=== PATIENT | female | born 1965 | race Caucasian/White ===

== ENCOUNTER 2019-09-08 16:11 | Outpatient (CLI) | payer OTHER, SELFPAY ==
--- NOTE | ~2019-09-08 | US_ITS ---
EXAMINATION: US transvaginal DATE: 09/08/2019 16:41 INDICATION: Cystocele TECHNIQUE: Multiple endovaginal sonographic images of the pelvis were obtained. COMPARISON: None. FINDINGS: The uterus is surgically absent. The ovaries are not visualized. There is a 3.3 x 2.7 x 2. 7 cm cystic area of the right adnexa. There is no free fluid in the pelvis. No definite sonographic e vidence of cystocele is seen. IMPRESSION: 1. No definite sonographic evidence of cystocele. 2. Cystic area of the right adnexa which may be benign. In a postmenopausal female, follow-up ultraso und in 12 months is recommended. Reviewed, dictated and finalized at location A. [employer] IMPRESSION: 1. No definite sonographic evidence of cystocele. 2. Cystic area of the right adnexa which may be benign. In a postmenopausal fem [place], follow-up ultrasound in 12 months is recommended.
== END 2019-09-08 16:12 ==
PROVIDERS: Visit Provider Nurse Practitioner
DX: N81.10 Cystocele, unspecified (principal); R93.5 Abnormal findings on diagnostic imaging of other abdominal regions, including retroperitoneum
CPT/HCPCS: 76830

== ENCOUNTER 2025-03-19 11:15 | Outpatient (CLI) | payer BC, SELFPAY ==
--- NOTE | ~2025-03-19 | XR_ITS ---
EXAM/PROCEDURE: XR chest 2V - 03/19/2025 11:24 CDT HISTORY: 60 years old Female with Subacute cough TECHNIQUE: Two view(s) of the chest. COMPARISON: None available. FINDINGS: LUNGS/ PLEURA: No focal consolidation. Mild perihilar bronchial wall thickening. HEART/ MEDIASTINUM: Heart appears normal in size. Tortuous aorta. BONES: No acute osseous abnormality. OTHER: Visualized upper abdomen is unremarkable. IMPRESSION: No focal consolidation. Mild perihilar bronchial wall thickening, findings suggestive of respiratory bronchiolitis. Reviewed, dictated and finalized at location N. IMPRESSION: No focal consolidation. Mild perihilar bronchial wall thickening, findings sugg estive of respiratory bronchiolitis.
== END 2025-03-19 11:16 | disposition home or self-care (01) ==
LOC: MICIMG 11:20
PROVIDERS: PCP Nurse Practitioner Family; Visit Provider Nurse Practitioner Family
DX: R05.2 Subacute cough (principal)
CPT/HCPCS: 71046